=== PATIENT | female | born 1985 | race American Indian/Alaskan Native ===

== ENCOUNTER 2017-04-26 22:54 | Emergency (ER) | payer BC, OTHER ==
[2017-04-26] MEDS ORDERED: Sulfamethoxazole/Trimethoprim 800-160 MG Tab PO ONE (22:55)
--- NOTE | 2017-04-27 01:27 | EDM.PDOC ---
ED HPI GENERAL MEDICAL PROBLEM - General Chief Complaint: Bite:Animal, Insect Stated Complaint: STUNG BY WASP LARGE RED AREA Time Seen by Provider: 04/26/17 23:55 Source of Information: Reports: Patient - History of Present Illness INITIAL COMMENTS - FREE TEXT/NARRATIVE: C/O pain, swelling and increased redness to left outer thigh after wasp sting on 04/25. Patient notes hx of MRSA. 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 - Related Data Allergies Allergy/AdvReac Type Severity Reaction Status Date / Time ciprofloxacin Allergy Dizziness Verified 04/27/17 00:04 Home Meds: Home Meds LORazepam [LORazepam] 0.5 mg PO DAILY PRN 04/27/17 [History] PARoxetine HCl [Paroxetine HCl] 30 mg PO DAILY 04/27/17 [History] Past Medical History - Past Health History Medical/Surgical History: Denies Medical/Surgical History Genitourinary History: Reports: Renal Calculus 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: Endometrial Ablation, Endometriosis Psychiatric History: Reports: Anxiety - Infectious Disease History Infectious Disease History: Reports: MRSA - Past Surgical History Female Surgical History: Reports: Tubal Ligation Social & Family History - Tobacco Use Smoking Status *Q: Never Smoker Used Tobacco, but Quit: Yes Month Tobacco Last Used: 4yrs ago Second Hand Smoke Exposure: No - Caffeine Use Caffeine Use: Reports: Coffee, Soda, Tea - Alcohol Use Days Per Week of Alcohol Use: 0 - Recreational Drug Use Recreational Drug Use: No - Living Situation & Occupation Living situation: Reports: with Family ED ROS GENERAL - Review of Systems Review Of Systems: ROS reveals no pertinent complaints other than HPI. ED EXAM, ANIMAL BITE - Physical Exam Exam: See Below Exam Limited By: No Limitations General Appearance: Alert, No Apparent Distress Eye Exam: Bilateral Eye: EOMI Ears: Normal External Exam Nose: Normal Inspection Throat/Mouth: Normal Inspection, Normal Lips Head: Atraumatic, Normocephalic Neck: Normal Inspection Respiratory/Chest: No Respiratory Distress, Lungs Clear, Normal Breath Sounds Cardiovascular: Normal Peripheral Pulses, Regular Rate, Rhythm GI/Abdominal: Normal Bowel Sounds Extremities: Normal Range of Motion, Redness. No: Joint Swelling Neurological: Alert, Oriented, Normal Cognition Skin Exam: Warm/Dry, Rash (palm sisize erythemoatous red raised area to left upper lateral thigh, warm to touch,) Course - Vital Signs Last Recorded V/S: Last Vital Signs Temp 97 F 04/27/17 01:33 Pulse 70 04/27/17 01:33 Resp 17 04/27/17 01:33 BP 112/76 04/27/17 01:33 Pulse Ox 100 04/27/17 01:33 - Orders/Labs/Meds Meds: Medications Discontinued Medications Generic Name Dose Route Start Last Admin Trade Name Estefani PRN Reason Stop Dose Admin Trimethoprim/Sulfamethoxazole Confirm 04/27/17 01:30 Septra Ds Administered 04/27/17 01:31 Dose 3 tab .ROUTE .STK-MED ONE Departure - Departure Time of Disposition: 01:24 Disposition: Home, Self-Care 01 Condition: Good Clinical Impression: Wasp sting Qualifiers: Encounter type: initial encounter Injury intent: accidental or unintentional Qualified Code(s): T63.461A - Toxic effect of venom of wasps, accidental ( unintentional), initial encounter Cellulitis Qualifiers: Site of cellulitis: extremity Site of cellulitis of extremity: lower extremity Laterality: left Qualified Code(s): L03.116 - Cellulitis of left lower limb - Discharge Information Instructions: Insect Bite, [id number] Referrals: PCP,None [Primary Care Provider] - Forms: ED Department Discharge Additional Instructions: bactrim one twice daily for one week increase fluids benadryl 25mg one every 4 hours as needed follow up if not improving tylenol or ibuprofen for discomfort
[2017-04-27] MEDS ORDERED: Sulfamethoxazole/Trimethoprim 800-160 MG Tab ONE (01:30)
[2017-04-27 01:47] VITALS: BP 112/76
== END 2017-04-27 01:33 | disposition home or self-care (01) ==
LOC: DL.ED 22:54
DX: T63.461A Toxic effect of venom of wasps, accidental (unintentional), initial encounter (principal); L03.116 Cellulitis of left lower limb; F41.9 Anxiety disorder, unspecified; Z87.442 Personal history of urinary calculi; Z98.51 Tubal ligation status; Z79.899 Other long term (current) drug therapy; Z88.1 Allergy status to other antibiotic agents
CPT/HCPCS: 99281; A9270

== ENCOUNTER 2017-05-30 22:01 | Emergency (ER) | payer BC, OTHER ==
[2017-05-30 22:46] LABS: CHLORIDE,CL 105 mmol/L (101-111); SODIUM,NA 138 mmol/L (135-145)
--- NOTE | 2017-05-30 23:13 | EDM.PDOC ---
ED HPI GENERAL MEDICAL PROBLEM - General Chief Complaint: Chest Pain Stated Complaint: CHEST PAIN [id number] Time Seen by Provider: 05/30/17 22:15 Source of Information: Reports: Patient History Limitations: Reports: No Limitations - History of Present Illness INITIAL COMMENTS - FREE TEXT/NARRATIVE: c/o onset left sided chest pain this darrell while at work Denied any sweating, nausea or breathing difficulty, has had no cough, no recent upper respiratory symptoms. Describes pain as intermittent sharp and worse with movement of left shoulder. 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 Ablation, Endometriosis Psychiatric History: Reports: Anxiety - Infectious Disease History Infectious Disease History: Reports: MRSA - Past Surgical History Female Surgical History: Reports: Tubal Ligation Social & Family History - Tobacco Use Smoking Status *Q: Never Smoker Used Tobacco, but Quit: Yes Month Tobacco Last Used: 4yrs ago Second Hand Smoke Exposure: No - Caffeine Use Caffeine Use: Reports: Soda - Alcohol Use Days Per Week of Alcohol Use: 0 - Recreational Drug Use Recreational Drug Use: No - Living Situation & Occupation Living situation: Reports: with Family ED ROS GENERAL - Review of Systems Review Of Systems: See Below Constitutional: Reports: No Symptoms HEENT: Reports: No Symptoms Respiratory: Denies: Shortness of Breath, Wheezing, Cough Cardiovascular: Reports: Chest Pain Endocrine: Reports: No Symptoms GI/Abdominal: Reports: No Symptoms : Reports: No Symptoms Musculoskeletal: Reports: Shoulder Pain (left) ED EXAM, GENERAL - Physical Exam Exam: See Below Exam Limited By: No Limitations General Appearance: Alert, No Apparent Distress Eye Exam: Bilateral Eye: EOMI Ears: Normal External Exam Ear Exam: Bilateral Ear: TM normal Nose: Normal Inspection Throat/Mouth: Normal Inspection Head: Atraumatic, Normocephalic Respiratory/Chest: No Respiratory Distress, Normal Breath Sounds, Other (left upper chest wall pint tenderness and left andterior shoulder discomfort, increased pain and stinging into axillary area with palpation) Cardiovascular: Normal Peripheral Pulses, Regular Rate, Rhythm GI/Abdominal: Normal Bowel Sounds, Soft Back Exam: Normal Inspection, Full Range of Motion Extremities: Normal Inspection, Normal Range of Motion Neurological: Alert, Oriented Psychiatric: Normal Affect Skin Exam: Warm, Dry, Intact, Normal Color Course - Vital Signs Last Recorded V/S: Last Vital Signs Temp 98.1 F 05/30/17 22:03 Pulse 83 05/30/17 23:16 Resp 16 05/30/17 23:16 BP 116/72 05/30/17 23:16 Pulse Ox 95 05/30/17 23:16 - Orders/Labs/Meds Orders: Active Orders 24 hr Category Date Time Status EKG 12 Lead [EKG Documentation Completion] [RC] STAT Care 05/30/17 22:15 Active Labs: Laboratory Tests 05/30/17 05/30/17 Range/Units 22:20 22:20 WBC 14.0 H (5.0-10.0) 10^3/uL RBC 5.00 (4.2-5.4) 10^6/uL Hgb 11.7 L D (12.0-16.0) g/dL Hct 38.2 (37.0-47.0) % MCV 76.4 L D (80-100) fL MCH 23.4 L (27.0-34.0) pg MCHC 30.6 L (33.0-35.0) g/dL Plt Count 310 (150-450) 10^3/uL Neut % (Auto) 67.9 (42.2-75.2) % Lymph % (Auto) 23.5 (20.5-50.1) % [place] % (Auto) 7.1 (2-8) % Eos % (Auto) 1.2 (1.0-3.0) % Baso % (Auto) 0.3 (0.0-1.0) % Sodium 138 (135-145) mmol/L Potassium 3.7 (3.6-5.0) mmol/L Chloride 105 (101-111) mmol/L Carbon Dioxide 26.0 (21.0-31.0) mmol/L Anion Gap 10.7 BUN 17 (7-18) mg/dL Creatinine 0.8 (0.6-1.3) mg/dL Est Cr Clr Drug Dosing TNP Estimated GFR (MDRD) > 60 BUN/Creatinine Ratio 21.25 Glucose 88 (74-105) mg/dL Calcium 8.8 (8.4-10.2) mg/dl Total Bilirubin 0.3 (0.2-1.0) mg/dL AST 15 (10-42) IU/L ALT 12 (10-60) IU/L Alkaline Phosphatase 89 (42-121) IU/L Troponin I < 0.02 (0.00-0.02) ng/ml Total Protein 7.7 (6.7-8.2) g/dl Albumin 3.5 (3.2-5.5) g/dl Globulin 4.2 Albumin/Globulin Ratio 0.83 Departure - Departure Time of Disposition: 23:08 Disposition: Home, Self-Care 01 Condition: Good Clinical Impression: Chest pain, non-cardiac Instructions: Nonspecific Chest Pain, [id number] Forms: ED Department Discharge Additional Instructions: ibuprofen 600mg every 6 hours prn , taken with food rest tonight follow up if not improving or symptoms worsen. - My Orders Last 24 Hours: My Active Orders 05/30/17 22:15 EKG 12 Lead [EKG Documentation Completion] [RC] STAT - Assessment/Plan Last 24 Hours: My Active Orders 05/30/17 22:15 EKG 12 Lead [EKG Documentation Completion] [RC] STAT
[2017-05-30 23:17] VITALS: BP 116/72
--- NOTE | 2017-06-02 12:36 | EKG ---
05/30/2017 - JULIANA PETERSEN - Claire 12-lead EKG shows normal sinus rhythm with heart rate of 94. NC interval of 180. No significant ST elevation or ST depression noted on this 12-lead EKG. Nonspecific ST-T wave changes noted on lead II. [facility] /[id number]
== END 2017-05-30 23:25 | disposition home or self-care (01) ==
LOC: DL.ED 22:01
DX: R07.89 Other chest pain (principal); Z87.442 Personal history of urinary calculi; Z87.891 Personal history of nicotine dependence; Z98.51 Tubal ligation status; Z79.899 Other long term (current) drug therapy; Z88.1 Allergy status to other antibiotic agents
CPT/HCPCS: 36415; 71010; 80053; 84484; 85025; 93005; 99285

== ENCOUNTER 2017-09-26 13:48 | Emergency (ER) | payer BC, OTHER ==
[2017-09-26 15:14] VITALS: BP 149/86
[2017-09-26] MEDS ORDERED: predniSONE 20 MG Tab PO ONE (16:00)
[2017-09-26] MEDS ORDERED: Promethazine 25 MG Tab PO ONE (16:01)
--- NOTE | 2017-09-26 16:16 | EDM.PDOC ---
Scribed by Amelia Billy 09/26/17 1601 for Jeyson Bruner MD ED HPI GENERAL MEDICAL PROBLEM - General Chief Complaint: Respiratory Problem Stated Complaint: [id number] TESTED + FOR FLU GETTING WORSE Time Seen by Provider: 09/26/17 15:25 Source of Information: Reports: Patient, RN, RN Notes Reviewed History Limitations: Reports: No Limitations - History of Present Illness INITIAL COMMENTS - FREE TEXT/NARRATIVE: Patient was diagnosed with influenza on September [address] [facility] in [place]. Presents today with headache, runny nose, fever, scratchy throat. She has generalized body aches. She had emesis times 1 today. Location: Reports: Generalized Quality: Reports: Ache Severity: Severe Improves with: Reports: None Worsens with: Reports: None Associated Symptoms: Reports: No Other Symptoms Generalized Pain Score (Numeric/FACES): 3 - Related Data Allergies Allergy/AdvReac Type Severity Reaction Status Date / Time ciprofloxacin Allergy Dizziness Verified 09/26/17 15:17 Home Meds: Home Meds LORazepam [LORazepam] 0.5 mg PO DAILY PRN 04/27/17 [History] PARoxetine HCl [Paroxetine HCl] 30 mg PO DAILY 04/27/17 [History] Acetaminophen [Tylenol Extra Strength] 1,000 mg PO ASDIRECTED PRN 09/26/17 [ History] Ibuprofen 600 mg PO ASDIRECTED PRN 09/26/17 [History] Past Medical History - Past Health History Medical/Surgical History: Denies Medical/Surgical History HEENT History: Reports: None Cardiovascular History: Reports: None Respiratory History: Reports: None Gastrointestinal History: Reports: None Genitourinary History: Reports: Renal Calculus 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: 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 Ablation, Endometriosis Musculoskeletal History: Reports: None Neurological History: Reports: Concussion Psychiatric History: Reports: Anxiety Endocrine/Metabolic History: Reports: None Hematologic History: Reports: None Immunologic History: Reports: None Oncologic (Cancer) History: Reports: None Dermatologic History: Reports: None - Infectious Disease History Infectious Disease History: Reports: Chicken Pox, MRSA - Past Surgical History Head Surgeries/Procedures: Reports: None GI Surgical History: Reports: Cholecystectomy Female Surgical History: Reports: Section, Tubal Ligation Social & Family History - Family History Family Medical History: Noncontributory - Tobacco Use Smoking Status *Q: Never Smoker Used Tobacco, but Quit: Yes Month Tobacco Last Used: 4yrs ago Second Hand Smoke Exposure: No - Caffeine Use Caffeine Use: Reports: Soda - Alcohol Use Days Per Week of Alcohol Use: 0 - Recreational Drug Use Recreational Drug Use: No - Living Situation & Occupation Living situation: Reports: with Family ED ROS GENERAL - Review of Systems Review Of Systems: ROS reveals no pertinent complaints other than HPI. ED EXAM, GENERAL - Physical Exam Exam: See Below Exam Limited By: No Limitations General Appearance: Other (acutely ill but nontoxic appearing. Obese) Eye Exam: Bilateral Eye: Normal Inspection Ears: Normal External Exam, Normal Canal, Hearing Grossly Normal, Normal TMs Nose: Other (clear nasal drainage. ) Throat/Mouth: Normal Inspection, Normal Lips, Normal Teeth, Normal Gums, Normal Oropharynx, Normal Voice, No Airway Compromise Head: Atraumatic, Normocephalic Neck: Other (no nuchal rigidity.) Respiratory/Chest: Other (dry cough) Cardiovascular: Regular Rate, Rhythm GI/Abdominal: Other (benign obese abdomen) (Female) Exam: Deferred Rectal (Female) Exam: Deferred Back Exam: Normal Inspection, Full Range of Motion, NT Extremities: Normal Inspection, Normal Range of Motion, Non-Tender, Normal Capillary Refill, No Pedal Edema Neurological: Alert, Oriented, CN II-XII Intact, Normal Cognition, Normal Gait, Normal Reflexes, No Motor/Sensory Deficits Psychiatric: Normal Affect, Normal Mood Skin Exam: Warm, Dry, Intact, Normal Color, No Rash Course - Vital Signs Last Recorded V/S: Last Vital Signs Temp 37.3 C 09/26/17 15:13 Pulse 120 H 09/26/17 15:13 Resp 20 09/26/17 15:13 BP 149/86 H 09/26/17 15:13 Pulse Ox 98 09/26/17 15:13 - Orders/Labs/Meds Orders: Active Orders 24 hr Category Date Time Status CULTURE STREP A CONFIRMATION [] Stat Lab 09/26/17 15:25 Results STREP SCRN A RAPID W CULT CONF [] Stat Lab 09/26/17 15:25 Results Meds: Medications Discontinued Medications Generic Name Dose Route Start Last Admin Trade Name Freq PRN Reason Stop Dose Admin Prednisone 60 mg 09/26/17 16:00 09/26/17 16:11 Prednisone PO 09/26/17 16:01 60 mg ONETIME ONE Administration Promethazine HCl 25 mg 09/26/17 16:01 09/26/17 16:11 Phenergan PO 09/26/17 16:02 25 mg ONETIME ONE Administration Rapid strep: Negative. Departure - Departure Time of Disposition: 15:58 Disposition: Home, Self-Care 01 Condition: Good Clinical Impression: Influenza - Discharge Information Instructions: Influenza, Adult, [id number] Forms: ED Department Discharge Additional Instructions: RX: Phenergan with codeine cough syrup. (*Do not drive while under the influence of this medication). Drink plenty of fluids. Tylenol and ibuprofen as needed for fever and pain. Follow direction on bottle for dosing and precautions. Follow up in clinic in 7-10 days if not improved. - My Orders Last 24 Hours: My Active Orders 09/26/17 15:25 CULTURE STREP A CONFIRMATION [RM] Stat STREP SCRN A RAPID W CULT CONF [RM] Stat - Assessment/Plan Last 24 Hours: My Active Orders 09/26/17 15:25 CULTURE STREP A CONFIRMATION [RM] Stat STREP SCRN A RAPID W CULT CONF [RM] Stat I have read and agree with the documentation that has been completed regarding this visit. By signing this record, I attest that the documentation was completed in my physical presence and is an accurate record of the encounter.
== END 2017-09-26 16:16 | disposition home or self-care (01) ==
LOC: DL.ED 13:48
DX: J11.1 Influenza due to unidentified influenza virus with other respiratory manifestations (principal); F41.9 Anxiety disorder, unspecified; Z87.891 Personal history of nicotine dependence; Z79.899 Other long term (current) drug therapy; Z88.1 Allergy status to other antibiotic agents
CPT/HCPCS: 87081; 87430; 99284; A9270

== ENCOUNTER 2017-10-12 00:36 | Emergency (ER) | payer BC, OTHER ==
[2017-10-12] MEDS ORDERED: Acetaminophen/oxyCODONE 325-5 MG Tab PO ONE (00:37)
[2017-10-12] MEDS ORDERED: predniSONE 20 MG Tab PO ONE (00:37)
[2017-10-12 01:05] VITALS: BP 118/76
[2017-10-12] MEDS ORDERED: Sodium Chloride 0.9% 1,000 ML IV ONE (01:05)
[2017-10-12] MEDS ORDERED: Ketorolac 30 MG/ML SDV IVPUSH ONE (01:37)
[2017-10-12 01:40] LABS: ANION GAP 8.8; CHLORIDE,CL 102 mmol/L (101-111); SODIUM,NA 136 mmol/L (135-145)
--- NOTE | 2017-10-12 02:03 | EDM.PDOC ---
ED HPI GENERAL MEDICAL PROBLEM - General Chief Complaint: Chest Pain Stated Complaint: PAIN IN LEFT SIDE AND CHEST [id number] Time Seen by Provider: 10/12/17 01:15 Source of Information: Reports: Patient History Limitations: Reports: No Limitations - History of Present Illness INITIAL COMMENTS - FREE TEXT/NARRATIVE: Recent influenza and pneumonia, tonight left upper abdominal and left rib pain - sharp, Pain worse with movement and deep breathing. Left Thoracic Pain Score (Numeric/FACES): 2 - Related Data Allergies Allergy/AdvReac Type Severity Reaction Status Date / Time ciprofloxacin Allergy Dizziness Verified 10/12/17 00:53 Home Meds: Home Meds LORazepam [LORazepam] 0.5 mg PO DAILY PRN 04/27/17 [History] PARoxetine HCl [Paroxetine HCl] 30 mg PO DAILY 04/27/17 [History] Past Medical History - Past Health History Medical/Surgical History: Denies Medical/Surgical History HEENT History: Reports: None Cardiovascular History: Reports: None Respiratory History: Reports: None Gastrointestinal History: Reports: None Genitourinary History: Reports: Renal Calculus 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: 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, Endometriosis, Other (See Below) Other OB/BYN History: cervical freezing Musculoskeletal History: Reports: None Neurological History: Reports: Concussion Psychiatric History: Reports: Anxiety Endocrine/Metabolic History: Reports: None Hematologic History: Reports: None Immunologic History: Reports: None Oncologic (Cancer) History: Reports: None Dermatologic History: Reports: None - Infectious Disease History Infectious Disease History: Reports: Chicken Pox, MRSA - Past Surgical History Head Surgeries/Procedures: Reports: None GI Surgical History: Reports: Cholecystectomy Female Surgical History: Reports: Section, Tubal Ligation Social & Family History - Family History Family Medical History: Noncontributory - Tobacco Use Smoking Status *Q: Never Smoker Used Tobacco, but Quit: Yes Month Tobacco Last Used: 4yrs ago Second Hand Smoke Exposure: No - Caffeine Use Caffeine Use: Reports: Soda - Alcohol Use Days Per Week of Alcohol Use: 0 - Recreational Drug Use Recreational Drug Use: No - Living Situation & Occupation Living situation: Reports: with Family ED ROS GENERAL - Review of Systems Review Of Systems: ROS reveals no pertinent complaints other than HPI. ED EXAM, GENERAL - Physical Exam Exam: See Below Exam Limited By: No Limitations General Appearance: Alert, Anxious, Mild Distress Eye Exam: Left Eye: Vision Changes (reports white spots at times in left visual field), Bilateral Eye: EOMI, Normal Fundi, PERRL Nose: Normal Inspection Throat/Mouth: Normal Inspection Head: Atraumatic, Normocephalic, Other (generalized tenderness with light touch) Neck: Normal Inspection, Full Range of Motion. No: Lymphadenopathy (L), Lymphadenopathy (R) Respiratory/Chest: No Respiratory Distress, Lungs Clear, Normal Breath Sounds, Other (left lateral chest wall tenderness with palpation) Cardiovascular: Normal Peripheral Pulses, Regular Rate, Rhythm, No Edema GI/Abdominal: Normal Bowel Sounds, Soft, Other (mild mid epigastric pain with deep palpation) Extremities: Normal Inspection, Normal Range of Motion Neurological: Alert, Oriented, Normal Cognition, Normal Gait, No Motor/Sensory Deficits Psychiatric: Normal Affect Skin Exam: Warm, Dry, Intact, Normal Color Course - Vital Signs Last Recorded V/S: Last Vital Signs Temp 98.1 F 10/12/17 01:04 Pulse 83 10/12/17 01:04 Resp 16 10/12/17 01:04 BP 118/76 10/12/17 01:04 Pulse Ox 98 10/12/17 01:04 - Orders/Labs/Meds Labs: Laboratory Tests 10/12/17 10/12/17 10/12/17 Range/Units 01:10 01:10 01:10 WBC 13.2 H (5.0-10.0) 10^3/uL RBC 4.75 (4.2-5.4) 10^6/uL Hgb 12.3 (12.0-16.0) g/dL Hct 38.6 (37.0-47.0) % MCV 81.3 D (80-100) fL MCH 25.9 L (27.0-34.0) pg MCHC 31.9 L (33.0-35.0) g/dL Plt Count 319 (150-450) 10^3/uL Neut % (Auto) 66.0 (42.2-75.2) % Lymph % (Auto) 25.1 (20.5-50.1) % [place] % (Auto) 6.9 (2-8) % Eos % (Auto) 1.8 (1.0-3.0) % Baso % (Auto) 0.2 (0.0-1.0) % D-Dimer, Quantitative < 100 (0-400) ng/mL Sodium 136 (135-145) mmol/L Potassium 3.8 (3.6-5.0) mmol/L Chloride 102 (101-111) mmol/L Carbon Dioxide 29.0 (21.0-31.0) mmol/L Anion Gap 8.8 BUN 10 (7-18) mg/dL Creatinine 0.8 (0.6-1.3) mg/dL Est Cr Clr Drug Dosing 90.84 mL/min Estimated GFR (MDRD) > 60 BUN/Creatinine Ratio 12.50 Glucose 95 (74-105) mg/dL Calcium 8.1 L (8.4-10.2) mg/dl Total Bilirubin 0.4 (0.2-1.0) mg/dL AST 20 (10-42) IU/L ALT 20 (10-60) IU/L Alkaline Phosphatase 103 (42-121) IU/L Total Protein 7.1 (6.7-8.2) g/dl Albumin 3.4 (3.2-5.5) g/dl Globulin 3.7 Albumin/Globulin Ratio 0.92 Amylase 39 (28-100) U/L Lipase 16 L (22-51) U/L Urine Color (YELLOW) Urine Appearance (CLEAR) Urine pH (5.0-9.0) Ur Specific [place] (1.005-1.030) Urine Protein (NEGATIVE) Urine Glucose (UA) (NEGATIVE) Urine Ketones (NEGATIVE) Urine Occult Blood (NEGATIVE) Urine Nitrite (NEGATIVE) Urine Bilirubin (NEGATIVE) Urine Urobilinogen (0.2-1.0) mg/dL Ur Leukocyte Esterase (NEGATIVE) Urine RBC /HPF Urine WBC (0-5/HPF) /HPF Ur Epithelial Cells /HPF Calcium Oxalate Crystal /HPF Urine Bacteria (0-FEW/HPF) /HPF Urine Mucus /LPF 10/12/17 Range/Units 02:20 WBC (5.0-10.0) 10^3/uL RBC (4.2-5.4) 10^6/uL Hgb (12.0-16.0) g/dL Hct (37.0-47.0) % MCV (80-100) fL MCH (27.0-34.0) pg MCHC (33.0-35.0) g/dL Plt Count (150-450) 10^3/uL Neut % (Auto) (42.2-75.2) % Lymph % (Auto) (20.5-50.1) % [place] % (Auto) (2-8) % Eos % (Auto) (1.0-3.0) % Baso % (Auto) (0.0-1.0) % D-Dimer, Quantitative (0-400) ng/mL Sodium (135-145) mmol/L Potassium (3.6-5.0) mmol/L Chloride (101-111) mmol/L Carbon Dioxide (21.0-31.0) mmol/L Anion Gap BUN (7-18) mg/dL Creatinine (0.6-1.3) mg/dL Est Cr Clr Drug Dosing mL/min Estimated GFR (MDRD) BUN/Creatinine Ratio Glucose (74-105) mg/dL Calcium (8.4-10.2) mg/dl Total Bilirubin (0.2-1.0) mg/dL AST (10-42) IU/L ALT (10-60) IU/L Alkaline Phosphatase (42-121) IU/L Total Protein (6.7-8.2) g/dl Albumin (3.2-5.5) g/dl Globulin Albumin/Globulin Ratio Amylase (28-100) U/L Lipase (22-51) U/L Urine Color Yellow (YELLOW) Urine Appearance Slightly cloudy (CLEAR) Urine pH 5.5 (5.0-9.0) Ur Specific [place] >= 1.030 (1.005-1.030) Urine Protein Trace H (NEGATIVE) Urine Glucose (UA) Negative (NEGATIVE) Urine Ketones 15 H (NEGATIVE) Urine Occult Blood Negative (NEGATIVE) Urine Nitrite Negative (NEGATIVE) Urine Bilirubin Negative (NEGATIVE) Urine Urobilinogen 0.2 (0.2-1.0) mg/dL Ur Leukocyte Esterase Negative (NEGATIVE) Urine RBC 0-5 /HPF Urine WBC 0-5 (0-5/HPF) /HPF Ur Epithelial Cells Moderate H /HPF Calcium Oxalate Crystal Moderate H /HPF Urine Bacteria Many H (0-FEW/HPF) /HPF Urine Mucus Moderate H /LPF Meds: Medications Discontinued Medications Generic Name Dose Route Start Last Admin Trade Name Freq PRN Reason Stop Dose Admin Sodium Chloride 1,000 mls @ 250 mls/hr 10/12/17 01:05 10/12/17 01:12 Normal Saline IV 10/12/17 05:04 250 mls/hr .BOLUS ONE Administration Ketorolac Tromethamine 30 mg 10/12/17 01:37 10/12/17 01:40 Toradol IVPUSH 10/12/17 01:38 30 mg ONETIME ONE Administration Oxycodone/Acetaminophen Confirm 10/12/17 03:21 10/12/17 03:35 Percocet 325-5 Mg Administered 10/12/17 03:22 Not Given Dose 2 tab .ROUTE .STK-MED ONE Prednisone Confirm 10/12/17 03:22 10/12/17 03:35 Prednisone Administered 10/12/17 03:23 Not Given Dose 20 mg .ROUTE .STK-MED ONE Departure - Departure Time of Disposition: 03:20 Disposition: Home, Self-Care 01 Condition: Good Clinical Impression: Left-sided chest wall pain - Discharge Information Instructions: Chest Wall Pain, [id number] Referrals: Tani Butler MD [Primary Care Provider] - Forms: ED Department Discharge Additional Instructions: increase fluids rest prednisone 20mg daily for 6 days percocet 5/325 one every 6 hours severe pain #2 take deep breaths every hour while awake clinic follow up 1-2 days to recheck
[2017-10-12] MEDS ORDERED: Acetaminophen/oxyCODONE 325-5 MG Tab ONE (03:21)
[2017-10-12] MEDS ORDERED: predniSONE 20 MG Tab ONE (03:22)
--- NOTE | 2017-10-19 10:21 | EKG ---
10/12/2017- JULIANA PETERSEN - FINDINGS: EKG per my reading shows sinus rhythm at the rate of 80s. [facility] /[id number]
== END 2017-10-12 03:40 | disposition home or self-care (01) ==
LOC: DL.ED 00:36
DX: R07.89 Other chest pain (principal); Z88.1 Allergy status to other antibiotic agents; Z79.899 Other long term (current) drug therapy
CPT/HCPCS: 36415; 70450; 71046; 80053; 81001; 82150; 83690; 85025; 85379; 96361; 96374; 99285; A9270; J1885; J7030

== ENCOUNTER 2017-12-01 22:36 | Emergency (ER) | payer BC, OTHER ==
[2017-12-01 22:52] VITALS: BP 128/84
[2017-12-01] MEDS ORDERED: Acetaminophen 325 MG Tab PO ONE (23:05)
[2017-12-01] MEDS ORDERED: Ibuprofen 800 MG Tab PO ONE (23:05)
--- NOTE | 2017-12-01 23:13 | EDM.PDOC ---
ED HPI GENERAL MEDICAL PROBLEM - General Chief Complaint: General Stated Complaint: MEDS NOT WORKING [id number] Time Seen by Provider: 12/01/17 23:00 Source of Information: Reports: Patient, RN, RN Notes Reviewed History Limitations: Reports: No Limitations - History of Present Illness INITIAL COMMENTS - FREE TEXT/NARRATIVE: Pt presents to the ER with c/o bilateral ear pain and throat pain. She states the throat pain began on the left side and has moved to the right side as well. She was seen in the clinic today and started on Augmentin. She has had 2 doses. She was told to take Tylenol and Ibuprofen for pain and fever. Patient has not been taking these things. She admits to sinus congestion. She denies any other c /o. Onset: Gradual Generalized Pain Score (Numeric/FACES): 5 - Related Data Allergies Allergy/AdvReac Type Severity Reaction Status Date / Time ciprofloxacin Allergy Dizziness Verified 12/01/17 22:52 Home Meds: Home Meds LORazepam 0.5 mg PO DAILY PRN 04/27/17 [History] PARoxetine HCl [Paroxetine HCl] 30 mg PO DAILY 04/27/17 [History] Past Medical History - Past Health History Medical/Surgical History: Denies Medical/Surgical History HEENT History: Reports: None Cardiovascular History: Reports: None Respiratory History: Reports: None Gastrointestinal History: Reports: None Genitourinary History: Reports: Renal Calculus COLD TYPE ARTIST History: Reports: Endometrial Ablation, Endometriosis, Other (See Below) Other OB/BYN History: cervical freezing Musculoskeletal History: Reports: None Neurological History: Reports: Concussion Psychiatric History: Reports: Anxiety Endocrine/Metabolic History: Reports: None Hematologic History: Reports: None Immunologic History: Reports: None Oncologic (Cancer) History: Reports: None Dermatologic History: Reports: None - Infectious Disease History Infectious Disease History: Reports: Chicken Pox, MRSA - Past Surgical History Head Surgeries/Procedures: Reports: None GI Surgical History: Reports: Cholecystectomy Female Surgical History: Reports: Section, Tubal Ligation Social & Family History - Family History Family Medical History: Noncontributory - Tobacco Use Smoking Status *Q: Never Smoker Used Tobacco, but Quit: Yes Month/Year Tobacco Last Used: 4yrs ago Second Hand Smoke Exposure: Yes - Caffeine Use Caffeine Use: Reports: Coffee, Soda - Alcohol Use Days Per Week of Alcohol Use: 0 - Recreational Drug Use Recreational Drug Use: No - Living Situation & Occupation Living situation: Reports: with Family ED ROS GENERAL - Review of Systems Review Of Systems: ROS reveals no pertinent complaints other than HPI. ED EXAM, GENERAL - Physical Exam Exam: See Below Exam Limited By: No Limitations General Appearance: Alert, WD/WN, Mild Distress Eye Exam: Bilateral Eye: EOMI, Normal Inspection Ears: Normal External Exam, Hearing Grossly Normal Ear Exam: Bilateral Ear: TM Dull, TM Red, TM Bulging Nose: Normal Inspection, Normal Mucosa, No Blood Throat/Mouth: Normal Voice, No Airway Compromise, Inflammation (tonsils bilaterally, +2), Other (Erythema) Head: Atraumatic, Normocephalic Neck: Full Range of Motion, Lymphadenopathy (L), Lymphadenopathy (R) Respiratory/Chest: No Respiratory Distress, Lungs Clear, Normal Breath Sounds, No Accessory Muscle Use, Chest Non-Tender Cardiovascular: Normal Peripheral Pulses, Regular Rate, Rhythm, No Edema, No Gallop, No JVD, No Murmur, No Rub GI/Abdominal: Normal Bowel Sounds (Female) Exam: Deferred Rectal (Female) Exam: Deferred Back Exam: Normal Inspection, Full Range of Motion Extremities: Normal Inspection, Normal Range of Motion, Non-Tender, Normal Capillary Refill, No Pedal Edema Neurological: Alert, Oriented, CN II-XII Intact, Normal Cognition, Normal Gait, Normal Reflexes, No Motor/Sensory Deficits Psychiatric: Depressed Mood, Flat Affect Skin Exam: Warm, Dry, Intact, Normal Color, No Rash Lymphatic: Adenopathy (Bilateral anterior cervical) Course - Vital Signs Last Recorded V/S: Last Vital Signs Temp 99.5 F 12/01/17 22:42 Pulse 115 H 12/01/17 22:42 Resp 18 12/01/17 22:42 BP 128/84 12/01/17 22:42 Pulse Ox 98 12/01/17 22:42 - Orders/Labs/Meds Meds: Medications Discontinued Medications Generic Name Dose Route Start Last Admin Trade Name Phoenixq PRN Reason Stop Dose Admin Acetaminophen 650 mg 12/01/17 23:05 12/01/17 23:16 Tylenol PO 12/01/17 23:06 650 mg NOW ONE Administration Ibuprofen 800 mg 12/01/17 23:05 12/01/17 23:16 Motrin PO 12/01/17 23:06 800 mg ONETIME ONE Administration Departure - Departure Time of Disposition: 23:10 Disposition: Home, Self-Care 01 Condition: Fair Clinical Impression: Pharyngitis Qualifiers: Pharyngitis/tonsillitis etiology: other specified organisms Qualified Code(s): J02.8 - Acute pharyngitis due to other specified organisms - Discharge Information Instructions: Pharyngitis, [id number], Sore Throat, [id number], Earache, Adult Forms: ED Department Discharge Additional Instructions: Continue taking the Augmentin you have been prescribed Use Tylenol and ibuprofen as directed for pain/fever Follow up with your primary care facility for recheck of throat and ears when through with Augmentin.
== END 2017-12-01 23:23 | disposition home or self-care (01) ==
LOC: DL.ED 22:36
DX: J20.8 Acute bronchitis due to other specified organisms (principal); Z88.1 Allergy status to other antibiotic agents; Z79.899 Other long term (current) drug therapy; Z87.891 Personal history of nicotine dependence
CPT/HCPCS: 99283; A9270

== ENCOUNTER 2017-12-15 18:26 | Emergency (ER) | payer BC, OTHER ==
[2017-12-15 18:54] VITALS: BP 125/83
== END 2017-12-15 22:53 | disposition left against medical advice (07) ==
LOC: DL.ED 18:26
DX: Z53.21 Procedure and treatment not carried out due to patient leaving prior to being seen by health care provider (principal)
CPT/HCPCS: 87430